=== PATIENT | male | born 2000 | race Caucasian/White ===

== ENCOUNTER 2021-12-31 18:29 | Emergency (ER) | payer OTHER, SELFPAY ==
[2021-12-31] MEDS ORDERED: Acetaminophen 500 MG TAB ONE (19:59)
[2021-12-31] MEDS ORDERED: Orphenadrine Citrate 60 MG/2 ML VIAL IM SCH (20:15)
== END 2021-12-31 21:55 | disposition home or self-care (01) ==
LOC: CSHERS 18:29
DX: S16.1XXA Strain of muscle, fascia and tendon at neck level, initial encounter (principal); M54.6 Pain in thoracic spine; F17.220 Nicotine dependence, chewing tobacco, uncomplicated; V89.2XXA Person injured in unspecified motor-vehicle accident, traffic, initial encounter
CPT/HCPCS: 70450; 72125; 72128; 96372; J2360